=== PATIENT | male | born 1990 | race Hispanic/Latino ===

== ENCOUNTER 2023-03-16 10:00 | Outpatient (RCR) | payer OTHER | END 2023-03-18 | LOC: PT 10:00 | PROVIDERS: ATTEND Specialist | DX: S42.254D Nondisplaced fracture of greater tuberosity of right humerus, subsequent encounter for fracture with routine healing (principal); M25.611 Stiffness of right shoulder, not elsewhere classified ==

== ENCOUNTER 2023-03-30 11:57 | Outpatient (RCR) | payer OTHER | END 2023-04-18 | LOC: OT 11:57 | PROVIDERS: ATTEND Specialist | DX: S42.254D Nondisplaced fracture of greater tuberosity of right humerus, subsequent encounter for fracture with routine healing (principal); M25.611 Stiffness of right shoulder, not elsewhere classified ==